=== PATIENT | female | born 1990 | race Caucasian/White ===

== ENCOUNTER 2020-03-18 14:08 | Emergency (ER) | payer MEDICAID ==
[~2020-03-18] VITALS: Ht 162.6 cm; Wt 72.6 kg
[2020-03-18 14:13] VITALS: BP_SYST 115
--- NOTE | 2020-03-18 15:05 | NUR ---
Patient to ER bed 03 to gown for evaluation. Side rails up.
--- NOTE | 2020-03-18 15:07 | NUR ---
Patient presented to ER C/O Abdominal pain. Patient ambulatory to ER A&Ox4, skin Burchinal & warm pain 6/10, nausea & vomiting, denies diarrhea Patient states she has abdominal pain & red blood in stool x4 days. PT has visible discoloration & IV wound site to right AC, I asked patient if she had recieved an IV recently. PT states she was seen at [facility] for anxiety.
--- NOTE | 2020-03-18 15:15 | NUR ---
ER Dr. Self at bedside examining patient.
[2020-03-18] MEDS: PANTOPRAZOLE SODIUM 40 MG TAB PO ONE (15:47)
[2020-03-18] MEDS: KETOROLAC TROMETHAMINE 30 MG VIAL IVP ONE (15:48)
[2020-03-18 15:49] LABS: BASOPHILS # (AUTO) 0.1 K/uL (0.0-0.2); BASOPHILS % (AUTO) 0.5 % (0.0-2.0); EOSINOPHILS # (AUTO) 0.3 K/uL (0.0-0.4); EOSINOPHILS % (AUTO) 3.1 % (0.0-4.0); HEMATOCRIT 38.9 % (36-48); HEMOGLOBIN 12.8 g/dL (12.0-16.0); LYMPHOCYTES # (AUTO) 4.4 K/uL (1.0-5.5); LYMPHOCYTES % (AUTO) 40.1 % (20.5-51.5); MEAN CORPUSCULAR HEMOGLOBIN 30 pg (27-31); MEAN CORPUSCULAR HGB CONC 33 % (32-36); MEAN CORPUSCULAR VOLUME 91 fL (79.0-98.0); MONOCYTES # (AUTO) 0.6 K/uL (0.0-1.0); MONOCYTES % (AUTO) 5.5 % (1.7-9.3); NEUTROPHILS # (AUTO) 5.6 K/uL (1.8-7.7); NEUTROPHILS % (AUTO) 50.8 % (40.0-70.0); PLATELET COUNT (AUTO) 373 K/uL (130-430); RED BLOOD CELL COUNT(AUTO) 4.29 MIL/uL (4.2-6.2); RED CELL DISTRIBUTION WIDTH 13.2 % (9.0-15.0); WHITE BLOOD COUNT (AUTO) 11.1 K/uL (4.8-10.8)
[2020-03-18] MEDS: NACL 0.9% 1,000 ML IV ONE (15:49)
[2020-03-18 15:55] LABS: CALCIUM 8.9 mg/dL (8.4-11.0); CREATININE 0.85 mg/dL (0.55-1.30); POTASSIUM 3.7 mmol/L (3.5-5.1)
[2020-03-18 16:01] LABS: ALBUMIN 3.7 g/dL (3.4-4.8); TOTAL BILIRUBIN 0.3 mg/dL (0.0-1.0)
[2020-03-18 16:06] LABS: PROTHROMBIN TIME 9.8 SECS (9.5-12.5)
--- NOTE | 2020-03-18 16:10 | NUR ---
PT moved to [facility].
[2020-03-18 16:35] VITALS: BP_SYST 118
--- NOTE | 2020-03-18 16:35 | NUR ---
Patient given written and verbal discharge instructions and verbalizes understanding. ER MD discussed with patient the results and treatment provided. Patient in stable condition. ID arm band removed. IV catheter removed intact and dressing applied, no active bleeding. Rx of tramadol & Protonix given. Patient educated on pain management and to follow up with PMD. Pain Scale 3/10. Opportunity for questions provided and answered. Medication side effect fact sheet provided.
== END 2020-03-18 16:35 | disposition home or self-care (01) ==
LOC: SED 14:08
DX: K29.70 Gastritis, unspecified, without bleeding (principal); R10.13 Epigastric pain; F17.210 Nicotine dependence, cigarettes, uncomplicated
CPT/HCPCS: 36415; 80053; 81025; 85025; 85610; 85730; 96361; 96374; 99283; J1885; J7030